=== PATIENT | female | born 1990 | race Two or more races ===

== ENCOUNTER 2020-08-22 15:24 | Outpatient (CLI) | payer OTHER | END 2020-08-22 15:36 | disposition home or self-care (01) | LOC: LAB 15:24 | PROVIDERS: ATTEND Internal Medicine Geriatric Medicine | DX: Z33.1 Pregnant state, incidental (principal) ==

== ENCOUNTER 2020-08-29 05:55 | Day surgery (SDC) | payer OTHER ==
[2020-08-29] MEDS ORDERED: CIPRO500 MG PO (10:39)
== END 2020-08-29 13:40 | disposition home or self-care (01) ==
LOC: CIR.AMB 05:55
PROVIDERS: ATTEND Obstetrics & Gynecology Gynecology
DX: N36.1 Urethral diverticulum (principal); Z20.822 Contact with and (suspected) exposure to COVID-19